=== PATIENT | male | born 1955 | race Caucasian/White ===

== ENCOUNTER 2020-09-06 19:13 | Emergency (ER) | payer MEDICARE, SELFPAY ==
--- NOTE | 2020-09-06 19:19 | ED.LOWEXIN ---
HPI - Extremity Injury (Lower) General Chief Complaint: Skin/Abscess/Foreign Body Stated Complaint: left toenail ripped off Time Seen by Provider: 09/06/20 19:19 Source: patient and RN notes reviewed Mode of arrival: ambulatory Limitations: no limitations History of Present Illness HPI Narrative: 65 yo male presents to the with concerns for infection to the left 4th toe after loosing the nail on Friday 09/01. Patient presents with Son Saturnino. Son states that he lost the toe nail almost 1 week ago and has but the toe in a baggy with water. Patient states that he just want to keep it moist. Son states that he saw it [employer] and it was white and looked like trenchfoot but only on the toe. Patient has a HX of peripheral neuropathy. States that he has had a stroke and cardiac issues in the past. Unable to walk. After cleansing the area. Mild pinkness returned. Sensation decreased due to peripheral neuropathy. Son Saturnino states that he would prefer to try antibiotics and follow-up with the primary care on Wednesday. Long discussion with son in regards to reasons to take him to the emergency room immediately. The son stated him or his will definitely keep an eye on them and watch for signs of healing or signs of infection and will take him to the ER Related Data Allergies Allergy/AdvReac Type Severity Reaction Status Date / Time HTN MED AdvReac Unknown Uncoded 09/06/20 19:31 Review of Systems Review of Systems: All systems reviewed & are unremarkable except as noted in HPI and below Constitutional: Constitutional: Reports no additional constitutional complaints Eyes: Eyes: Reports no additional eye complaints Cardiovascular: Cardiovascular: Reports no additional cardiovascular complaints and Denies chest pain Respiratory: Respiratory: Reports no additional respiratory complaints and Denies cough Gastrointestinal: Gastrointestinal: Reports no additional gastrointestinal complaints, Denies abdominal pain, Denies nausea and Denies vomiting Musculoskeletal: Musculoskeletal: Reports as per HPI and Reports joint swelling (4th left toe) Integumentary/Breasts: Skin/Breast: Reports as per HPI Neurologic: Reports numbness (Chronic bilateral feet, peripheral neuropathy) Psychiatric: Psychiatric: Reports no additional psychiatric complaints PMFSH Comments At the time of my signature, I reviewed and agree with the nursing past medical, surgical, social, and family history. There is no relevant family history pertinent to the patient complaint. Exam Const: General: no acute distress, alert and ill appearing chronically Nutritional Appearance: well nourished Orientation/consciousness: patient oriented x3 Limitations: no limitations HENMT: Head: normal to inspection Neck: Neck: normal visual inspection Chest: Chest palpation & inspection: normal inspection of the chest Resp: Effort & Inspection: normal respiratory effort Auscultation: diminished lung sounds bilateral Cardio: Rate: regular rate Rhythm: regular rhythm Skin: Other: Toe left foot appears that his been in water for long periods of time with the white areas. After cleaning and leaving open to air for 30 minutes some pinkness returned. Toe was warm, not hot. Neuro: General: oriented to person, oriented to place, No oriented to time, moves all extremities and confusion (Son reports baseline) Speech: normal speech Gait exam (Neuro): Unable to assess gait (Wheelchair-bound) Psych: Affect: normal affect Course Vital Signs Vital signs: Vital Signs Temperature 97.7 F 09/06/20 19:25 Pulse Rate 68 09/06/20 19:25 Respiratory Rate 16 09/06/20 19:25 Blood Pressure 140/80 09/06/20 19:25 Pulse Oximetry 99 09/06/20 19:25 Temperature 97.7 F 09/06/20 19:25 Pulse Rate 68 09/06/20 19:25 Respiratory Rate 16 09/06/20 19:25 Blood Pressure 140/80 09/06/20 19:25 Pulse Oximetry 99 09/06/20 19:25 Reviewed MDM - Extremity Injury (Lower) MDM N
[2020-09-06 19:25] VITALS: BP 140/80; PULSE 68; RESP 16; TEMP 36.5; O2SAT 99
== END 2020-09-06 19:52 | disposition home or self-care (01) ==
PROVIDERS: Emergency Provider Nurse Practitioner
DX: S91.205A Unspecified open wound of left lesser toe(s) with damage to nail, initial encounter (principal); X58.XXXA Exposure to other specified factors, initial encounter; G62.9 Polyneuropathy, unspecified; I20.9 Angina pectoris, unspecified; I11.0 Hypertensive heart disease with heart failure; I50.9 Heart failure, unspecified; E78.00 Pure hypercholesterolemia, unspecified; R73.03 Prediabetes
CPT/HCPCS: 99213; G0463